=== PATIENT | male | born 1995 | race Two or more races ===

== ENCOUNTER 2021-03-29 21:16 | Emergency (ER) | payer SELFPAY ==
[~2021-03-29] VITALS: Ht 195.6 cm; Wt 118.8 kg
[2021-03-29 21:23] VITALS: BP 146/88
[2021-03-29] MEDS ORDERED: DEXAMETHASONE 4 MG TABLET PO ONE (21:30)
[2021-03-29] MEDS ORDERED: DEXAMETHASONE 4 MG TABLET ONE (22:06)
[2021-03-29 22:12] LABS: BASOPHILS % (AUTO) 1 % (0-1); EOSINOPHILS % (AUTO) 1 % (1-7); LYMPHOCYTES % (AUTO) 24 % (22-44); MEAN CORPUSCULAR HEMOGLOBIN 31.7 pg (27.5-34.5); MEAN CORPUSCULAR HGB CONC 35.1 g/dL (33.2-36.2); MEAN PLATELET VOLUME 7.2 fL (7.4-10.4); MONOCYTES % (AUTO) 7 % (2-9); NEUTROPHILS % (AUTO) 68 % (42-75); PLATELET COUNT 335 x10^3/uL (130-400); RED BLOOD COUNT 4.76 x10^6/uL (4.38-5.82); RED CELL DISTRIBUTION WIDTH 12.3 % (9.4-14.8)
[2021-03-29 22:20] LABS: ALBUMIN 3.8 g/dL (3.4-5.0); ANION GAP 7 mmol/L (5-15); CALCIUM 9.2 mg/dL (8.5-10.1); CHLORIDE 106 mmol/L (98-107); CREATININE 0.88 mg/dL (0.7-1.3)
[2021-03-29] MEDS ORDERED: LIDOCAINE 1%-EPI 1:100K, 20ML INFIL ONE (22:30)
[2021-03-29] MEDS ORDERED: BENZOCAINE AEROSOL SPRAY 20%, 60ML TP ONE (22:30)
[2021-03-29] MEDS ORDERED: AMOXICILLIN/CLAV 875-125MG TABLET PO ONE (22:30)
[2021-03-29] MEDS ORDERED: HYDROcodone/APAP 5/325 TABLET PO ONE (22:30)
[2021-03-29] MEDS ORDERED: BENZOCAINE AEROSOL SPRAY 20%, 60ML ONE ×2 (22:40→23:26)
[2021-03-29] MEDS ORDERED: HYDROcodone/APAP 5/325 TABLET ONE ×2 (22:40→23:50)
[2021-03-29] MEDS ORDERED: AMOXICILLIN/CLAV 875-125MG TABLET ONE (22:40)
[2021-03-29] MEDS ORDERED: LIDOCAINE 1%-EPI 1:100K, 20ML ONE (22:40)
[2021-03-30] MEDS ORDERED: HYDROcodone/APAP 5/325 TABLET PO ONE
[2021-03-30] MEDS ORDERED: OXYcodone 5 MG/5 ML ORAL.SOL UDC PO PRN (00:30)
[2021-03-30] MEDS ORDERED: OXYcodone 5 MG/5 ML ORAL.SOL UDC ONE (00:31)
== END 2021-03-30 01:26 | disposition home or self-care (01) ==
LOC: ED 22:00
DX: J36 Peritonsillar abscess (principal)
CPT/HCPCS: 36415; 42999; 80048; 82040; 85025; 87070; 87147; 87205; 87880; 99284